=== PATIENT | female | born 1940 | race Caucasian/White ===

== ENCOUNTER → 2021-06-28 | Outpatient (CLI) | payer MEDICARE, BC ==
[~2021-06-28] MED LIST: ALEVE 220MG220 MG PO; ASPIRIN 32325 MG/TAB PO; NORCO 325 MG-51 TAB PO; RHINOCORT0.032 MG/1 NS; ZOCOR 80MG80 MG PO
== END ==
LOC: MC.RAD 08:09
DX: R92.0 Mammographic microcalcification found on diagnostic imaging of breast (principal)

== ENCOUNTER → 2021-07-20 | Outpatient (CLI) | payer MEDICARE, BC | LOC: MC.RAD 13:00 | DX: C50.912 Malignant neoplasm of unspecified site of left female breast (principal) | CPT/HCPCS: A9520; C1769 ==

== ENCOUNTER 2021-07-21 06:50 | Day surgery (SDC) | payer MEDICARE, BC ==
[~2021-07-21] VITALS: Ht 152.4 cm; Wt 56.9 kg
[2021-07-21] VITALS (8 sets, daily range): BP systolic 105–156; BP diastolic 68–93; PULSE 68–89; TEMP 97.5–98
--- NOTE | 2021-07-21 11:50 | NUR ---
PATIENT RETURNS TO ROOM 6 PER CART FROM PACU ACCOMPANIED BY ALBERT CHARLES AND IS AWAKE AND ALERT. IV FLUIDS INFUSING AND SITE IS FREE OF REDNESS OR SWELLING. DRESSING CLEAN AND DRY ON THE LEFT BREAST. SIDERAILS UP X2 AND CALL LIGHT IN REACH. GIVEN DIET PEPSI TO DRINK. CALL LIGHT IN REACH AND SIDERAILS UP X2.
--- NOTE | 2021-07-21 12:05 | NUR ---
RESTING WITH EYES CLOSED AND OFFERS NO COMPLAINTS.
--- NOTE | 2021-07-21 12:20 | NUR ---
RESTING WITH EYES CLOSED AND NOT DISTURBED.
--- NOTE | 2021-07-21 12:35 | NUR ---
MORE AWAKE NOW AND SIPPING ON WATER AND EATING MUFFIN.
--- NOTE | 2021-07-21 12:50 | NUR ---
STATES THAT SHE IS HAVING MINIMAL INCISIONAL SORENESS AND COMPLAINS OF BACK SORENESS.
--- NOTE | 2021-07-21 13:12 | NUR ---
MEDICATED WITH NORCO 5MG FOR INCREASING PAIN. WARM BLANKET APPLIED TO BACK.
--- NOTE | 2021-07-21 13:20 | NUR ---
RESTING WITH EYES CLOSED. HAS BEEN SIPPING ON WATER.
--- NOTE | 2021-07-21 13:50 | NUR ---
ASSISTED UP TO THE BATHROOM AND IS ABLE TO VOID AND RETURNS TO ROOM. IV TO INT. ALLOWED TO REST. RIDE WILL BE HERE AT 1500.
--- NOTE | 2021-07-21 14:30 | NUR ---
INT DISCONTINUED AND SITE IS FREE OF REDNESS. PATIENT DRESSES SELF.
--- NOTE | 2021-07-21 15:00 | NUR ---
DISMISSAL INSTRUCTIONS GIVEN AND VOICES UNDERSTANDING OF THESE. PROVIDED OFFICE NUMBER FOR QUESTIONS.
--- NOTE | 2021-07-21 15:17 | NUR ---
PATIENT DISMISSED TO HOME DRIVEN BY FRIEND AND TAKEN TO THE FRONT DOOR PER WHEELCHAIR AND ASSISTED INTO VEHICLE WITH INSTRUCTIONS IN HAND.
== END 2021-07-21 15:17 | disposition home or self-care (01) ==
LOC: SDCO 06:50
DX: C50.411 Malignant neoplasm of upper-outer quadrant of right female breast (principal); C50.412 Malignant neoplasm of upper-outer quadrant of left female breast; Z80.3 Family history of malignant neoplasm of breast; Z86.73 Personal history of transient ischemic attack (TIA), and cerebral infarction without residual deficits
CPT/HCPCS: A4648; J0690; J1100; J2250; J2405; J2704; J3010; J7120